=== PATIENT | male | born 1975 | race Caucasian/White ===

== ENCOUNTER 2017-12-04 19:55 | Emergency (ER) | payer MEDICAID ==
[~2017-12-04] VITALS: Ht 175.3 cm; Wt 129.3 kg
[2017-12-04 20:03] VITALS: BP 175/95
--- NOTE | 2017-12-04 20:09 | NUR ---
PT AMBULATORY TO ER LOBBY W/ STEADY GAIT IN STABLE CONDITION.
--- NOTE | 2017-12-04 21:29 | NUR ---
PT TAKEN TO BED 7
--- NOTE | 2017-12-04 21:35 | NUR ---
PATIENT PRESENTS TO ED WITH C/O TINGLING TO BOTH FEET AND HANDS TODAY. PT C/O SLIGHT HEADACHE TODAY WELL. 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 SPEECH IN INTACT, NO SLURRING OF WORDS. PT DENIES N/V/D; SKIN IS PINK/WARM/DRY; AAOX4 WITH EVEN AND STEADY GAIT; LUNGS CLEAR BL; HR EVEN AND REGULAR; PATIENT STATES PAIN OF 2/10 AT THIS TIME; VSS; PATIENT POSITIONED FOR COMFORT; HOB ELEVATED; BEDRAILS UP X2; BED DOWN.
--- NOTE | 2017-12-04 22:09 | NUR ---
Dr. Iverson evaluating patient at bedside.
[2017-12-04 22:49] VITALS: BP 151/91
--- NOTE | 2017-12-04 22:49 | NUR ---
Patient discharged with v/s stable. Written and verbal after care instructions given and explained. Patient alert, oriented and verbalized understanding of instructions. Ambulatory with steady gait. All questions addressed prior to discharge. ID band removed. Patient advised to follow up with PMD. Rx of GABAPENTIN given. Patient educated on indication of medication including possible reaction and side effects. Opportunity to ask questions provided and answered.
== END 2017-12-04 22:49 | disposition home or self-care (01) ==
LOC: MED 19:55
DX: M54.30 Sciatica, unspecified side (principal); M54.12 Radiculopathy, cervical region
CPT/HCPCS: 82948; 99283

== ENCOUNTER 2020-03-25 01:07 | Emergency (ER) | payer MEDICAID ==
[~2020-03-25] VITALS: Ht 177.8 cm; Wt 132.9 kg
[2020-03-25 01:23] VITALS: BP 145/95
--- NOTE | 2020-03-25 01:51 | NUR ---
HAYDE ASSESSING PATIENT BY BLANCA.
[2020-03-25 01:55] VITALS: BP 154/98
--- NOTE | 2020-03-25 02:40 | NUR ---
NO NURSING CARE PROVIDED TO THIS PATIENT
== END 2020-03-25 02:42 | disposition home or self-care (01) ==
LOC: MED 01:07
DX: F41.9 Anxiety disorder, unspecified (principal)
CPT/HCPCS: 93005; 99283